=== PATIENT | female | born 1935 | race Caucasian/White ===

== ENCOUNTER 2023-07-03 12:45 | Emergency (ER) | payer MEDICARE, MEDICAID, SELFPAY ==
[2023-07-03] VITALS (7 sets, daily range): BP systolic 145–160; BP diastolic 53–69; PULSE 52–66; RESP 13–22; TEMP 36.5; O2SAT 96–98
--- NOTE | ~2023-07-03 | CT_ITS ---
EXAMINATION: CT brain wo con DATE: 07/03/2023 14:20 INDICATION: Fall with head injury TECHNIQUE: Computed tomography (CT) of the head was performed without intravenous contrast. Sagittal and coronal reconstructions were performed. The mA was adjusted according to patient size. Iterative reconstruction technique was employed. The dose-length product was 605.33 mGy-cm. COMPARISON: None FINDINGS: No fracture. No acute intracranial hemorrhage, acute infarction or abnormal extra axial fluid collect ion. There is extensive scattered white matter hypoattenuation consistent with chronic small vessel i schemic disease. Symmetric prominence of the sulci consistent with mild to moderate age-appropriate d iffuse cerebral volume loss. Ventricles are normal and symmetric. No mass/mass effect. There is muco lyubov thickening bilateral ethmoid and right maxillary sinuses with minimal amount of dependently layer ing fluid in the right maxillary sinus. Changes of bilateral intraocular lens replacement. Mastoid ai r cells and middle ear cavities are clear. Intracranial calcified cerebral atherosclerosis is noted. IMPRESSION: 1. No fracture or acute intracranial process. 2. Age-related changes including mild to moderate diffuse volume loss and extensive scattered white m atter hypoattenuation consistent with chronic small vessel ischemic disease. Reviewed, dictated and finalized at location A. CTOR OF GRADUATE ADMISSIONS IMPRESSION: 1. No fracture or acute intracranial process. 2. Age-related changes including mild to moderate diffuse volume loss and exten sive scattered white matter hypoattenuation consistent with chronic small vesse l ischemic disease.
--- NOTE | ~2023-07-03 | XR_ITS ---
EXAMINATION: XR forearm RT 2V, XR hand RT min 3V DATE: 07/03/2023 14:34 INDICATION: Laceration posterior to the right hand and bruising and swelling at the posterolateral as pect of the proximal right forearm. TECHNIQUE: 1. AP an lateral views of the right forearm were obtained. 2. Dorsal palmar, oblique and lateral views of the right hand were obtained. COMPARISON: none FINDINGS: Right forearm: There is prominent soft tissue swelling at the ulnar aspect of the proximal right forearm. Prominent diffuse osteopenia. Bone alignment is normal. No fracture. Mild polyarticular osteoarthritis at the r ight elbow and wrist. No evident elbow joint effusion. Normal variant supracondylar process along the anterior distal metadiaphyseal region of the right humerus. Right hand: Bone alignment is normal. No fracture. Moderate polyarticular osteoarthritis at the first carpometaca rpal and triscaphe, multiple metacarpophalangeal and interphalangeal joints. No radiopaque foreign cassia dies. IMPRESSION: 1. No acute osseous abnormality or radiopaque foreign bodies. 2. Polyarticular osteoarthritis, moderate severity throughout the right hand and mild at the right wr ist and elbow. 3. Prominent diffuse osteopenia. Reviewed, dictated and finalized at location A. HEMICAL LABORATORY TECHNICIAN IMPRESSION: 1. No acute osseous abnormality or radiopaque foreign bodies. 2. Polyarticular osteoarthritis, moderate severity throughout the right hand an d mild at the right wrist and elbow. 3. Prominent diffuse osteopenia.
--- NOTE | ~2023-07-03 | CT_ITS ---
EXAMINATION: CT cervical spine wo con DATE: 07/03/2023 14:20 INDICATION: Fall with head injury TECHNIQUE: Computed tomography (CT) of the cervical spine was performed without intravenous contrast. Automated exposure control and iterative reconstruction technique were employed. The dose-length pro duct was 348.31 mGy-cm. COMPARISON: None FINDINGS: Alignment is normal. Cervical vertebral body heights are normal. Chronic appearing mild anterior wedg ing at T2 and minimal at T1. No acute fracture. Moderate osteoarthritis at the atlantoaxial articulat ion with surrounding calcified pannus. Moderate disc height loss at C3-C4 and C5-C6. Mild disc height loss at C4-C5, C6-C7 through T2-T3. Prominent atherosclerotic calcification is at the bilateral garcia tid bulbs which may be hemodynamically significant. Cervical soft tissues are otherwise unremarkable. Mild biapical pleural-parenchymal scarring. The following disc levels are specifically discussed: C2-C3: Disc is bulging. There is mild left and moderate right uncovertebral joint osteoarthritis. The re is mild to moderate bilateral facet joint osteoarthritis. There is mild right neural foraminal kavita nosis. There is mild central canal stenosis. C3-C4: Disc is bulging. There is severe bilateral uncovertebral joint osteoarthritis. There is mild b ilateral facet joint osteoarthritis. There is moderate right and mild to moderate left neural foramin al stenosis. There is mild central canal stenosis. C4-C5: Disc is bulging. Ossification along the posterior longitudinal ligament as well as the ligamen jey flavum. There is moderate bilateral uncovertebral joint osteoarthritis. There is mild bilateral f acet joint osteoarthritis. There is mild bilateral neural foraminal stenosis. There is moderate centr al canal stenosis. C5-C6: Disc is bulging. Additional calcific location of the ligamentum flavum. There is moderate left and severe right uncovertebral joint osteoarthritis. There is mild bilateral facet joint osteoarthri tis. There is mild to moderate bilateral neural foraminal stenosis. There is mild central canal steno sis. C6-C7: Disc is bulging. There is calcification of the ligamentum flavum. There is moderate bilateral uncovertebral joint osteoarthritis. There is mild right and moderate left facet joint osteoarthritis. There is mild right and mild to moderate left neural foraminal stenosis. There is mild central canal stenosis. C7-T1: Disc is mildly bulging. There is minimal bilateral uncovertebral joint osteoarthritis. There i s moderate left and severe right facet joint osteoarthritis. There is minimal left neural foraminal s tenosis. There is no central canal stenosis. IMPRESSION: 1. Moderate cervical spondylosis. No acute osseous abnormality. 2. Atherosclerotic calcifications at the bilateral carotid bulbs which may be hemodynamically signifi cant. Reviewed, dictated and finalized at location A. ER SORTER MACHINE IMPRESSION: 1. Moderate cervical spondylosis. No acute osseous abnormality. 2. Atherosclerotic calcifications at the bilateral carotid bulbs which may be h emodynamically significant.
--- NOTE | ~2023-07-03 | CT_ITS ---
EXAMINATION: CT abdomen pelvis w con DATE: 07/03/2023 14:20 INDICATION: Abdomen firm to palpation TECHNIQUE: Computed tomography (CT) of the abdomen and pelvis was performed with 100 cc Omnipaque 350 intravenous contrast. The dose-length product was 1121.45 mGy-cm. Automated exposure control and ite rative reconstruction technique were employed. COMPARISON: None. FINDINGS: Patchy bibasilar airspace disease which may represent pneumonia and/or atelectasis. Cardiom egaly. No significant pleural or pericardial effusion. There are calcified granulomas of the spleen. Status post cholecystectomy. There is a large area of GI of graphic hypoperfusion of the right kidney , suspicious for renal infarction. There is a complex right renal mass measuring 2.4 cm, concerning f or renal cell carcinoma. There is a 4 mm nonobstructing left renal stone. The pancreas, adrenal gland s are unremarkable. Nonobstructive bowel gas pattern. Uterus is atrophic with coarse calcifications, likely related to fibroid changes. No free air or free fluid. No lymphadenopathy. Moderate diffuse at herosclerosis without aneurysm. Generalized demineralization of the bones. There is mixed lytic and s clerotic lesion of the right ilium, concerning for metastatic disease. There are scattered areas of s clerosis in the spine and sacrum, concerning for metastatic disease. Status post median sternotomy fo r CABG. There is nodular irregular soft tissue of the left breast. Cannot exclude breast mass. IMPRESSION: 1. Large geographic area of hypoperfusion right kidney, concerning for renal infarction. 2: Complex 2.4 cm right renal mass, suspicious for renal cell carcinoma. Possible osseous metastases to the spine and pelvis. 3: Patchy bibasilar airspace disease may represent pneumonia and/or atelectasis. 4: Nodular asymmetric soft tissue of the left breast, suspicious for underlying mass. Correlation wi th diagnostic bilateral mammogram and ultrasound recommended. Reviewed, dictated and finalized at location L. AULIC CONTROLS TECHNICIAN IMPRESSION: 1. Large geographic area of hypoperfusion right kidney, concerning for renal in farction. 2: Complex 2.4 cm right renal mass, suspicious for renal cell carcinoma. Possi ble osseous metastases to the spine and pelvis. 3: Patchy bibasilar airspace disease may represent pneumonia and/or atelectasis . 4: Nodular asymmetric soft tissue of the left breast, suspicious for underlyin g mass. Correlation with diagnostic bilateral mammogram and ultrasound recommen ded.
--- NOTE | 2023-07-03 13:03 | ED.FALL ---
HPI - Fall General Chief Complaint: Fall Stated Complaint: fall, head lac, R FA pain Source: patient Mode of arrival: EMS Limitations: dementia History of Present Illness HPI Narrative: [facility]ortedly [facility] at a [facility]. It was witnessed. Sustained head laceration and right forearm injury. She was intiially complainign of a headache. Sling applied by EMS. On Plavix and/or Elliquis. Alert and oriented to self which is reported to be her baseline. 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 When asked where she has pain, she states no where.' Related Data Allergies Allergy/AdvReac Type Severity Reaction Status Date / Time No Known Allergies Allergy Verified 07/03/23 13:44 PMFSH Past Medical History Medical History Anemia, unspecified Anxiety disorder, unspecified Atherosclerotic heart disease of [place] coronary artery without angina pectoris Bradycardia, unspecified Chronic atrial fibrillation, unspecified Dysphagia, oral phase Essential (primary) hypertension Hyperlipidemia, unspecified Low back pain, unspecified Lymphedema, not elsewhere classified Morbid (severe) obesity due to excess calories Type 2 diabetes mellitus without complications Social History Social History (Updated 07/03/23 @ 13:10 by Awilda Lentz MD) Social History: DNR per [facility] documentation. Undergoing [facility] Hospice services per [facility] care Exam Narrative: GENERAL: well-nourished, and in no acute distress. HEAD: 1.5 cm linear laceration mid forehead, bleeding contrtolled EYES: Non injected, non icteric ENT: Nares clear, no rhinorrhea or epistaxis. but some bruising to the bridge of her nose. NECK: Supple. CHEST: No respiratory distress. HEART: Regular rate and rhythm. .Palpalble 2+ radial pulse in RUE ABDOMEN: Soft but with an abdominal firmness; no rigidity or guarding. EXTREMITIES: Ecchymosis to right hand between thumb and 2nd digit. Ecchymosis and hemotoma at proximal right forearm but able to move extremity. Hips stable to compression. SKIN: Warm, dry, no rash. NEURO: Alert and oriented to self only. . PSYCH: Normal mood and affect. Course Vital Signs Vital signs: Vital Signs Temperature 97.7 F 07/03/23 12:47 Pulse Rate 52 L 07/03/23 12:47 Respiratory Rate 16 07/03/23 12:47 Blood Pressure 147/53 H 07/03/23 12:47 Pulse Oximetry 97 07/03/23 12:47 Oxygen Delivery Room Air 07/03/23 12:47 Temperature 97.7 F 07/03/23 12:47 Pulse Rate 66 07/03/23 16:19 Respiratory Rate 18 07/03/23 16:19 Blood Pressure 145/69 H 07/03/23 16:19 Pulse Oximetry 97 07/03/23 16:19 Oxygen Delivery Room Air 07/03/23 12:47 MDM - Fall MDM Narrative Medical decision making narrative: Patient presents as a reported witnessed fall [facility] at [facility]. Has a laceration to forehead and hematoma at proximal right forearm, sling applied by EMS. Neurovascularly intact. Imaging negative for intracranial hemorrhage, cervical spine fracture (collar removed) or extremity fracture/dislocation. Ice pack applied to forearm which has a sizeable hematoma. Cr elevated with unknown baseline, fluids ordered. Patient's son presents to bedside. I did discuss with him the findings on the CT scan concerning for possible renal malignancy. He is not aware of this although he states they were concerned that there was concern that patient had cancer, unclear what time. Through shared decision-making, we did discuss that as she is on hospice and goals of care have been for comfort measures, will not be pursuing further work up or intervention at this time. Medical student performed laceration repair using lidocaine locally and 3 simple interrupted chromic gut dissolvable/absorbable sutures. Tolerated procedure well and I did examine wound after which appears very well approximated. RN to apply non
[2023-07-03 13:36] LABS: Basophils Percent Auto 0.4 % (0.2-1.2); Eosinophils Absolute Auto 0.1 K/mm3 (0-0.3); Eosinophils Percent Auto 0.6 % (0-4.4); Hematocrit 39.2 % (37.0-47.0); Hemoglobin 12.7 g/dL (12.0-15.0); Immature Granulocyte Absolute 0.03 K/mm3 (0.00-0.031); Immature Granulocyte Percent A 0.4 % (0-0.5); Lymphocytes Absolute Auto 1.89 K/mm3 (0.9-3.2); Lymphocytes Percent Auto 24.2 % (18.3-44.2); Mean Corpuscular HGB Conc 32.4 g/dl (32-36); Mean Corpuscular Hemoglobin 30.2 pg (26-34); Mean Corpuscular Volume 93.1 fl (80-100); Mean Platelet Volume 11.1 fl (7.4-10.4); Monocytes Absolute Auto 0.7 K/mm3 (0.1-0.6); Monocytes Percent Auto 9.2 % (2.6-8.5); Neutrophils Absolute Auto 5.1 K/mm3 (1.3-6.7); Neutrophils Percent Auto 65.2 % (45.5-73.1); Platelet Count Result 191 k/mm3 (150-375); Red Blood Count 4.21 M/mm3 (4.2-5.4); Red Cell Distribution Width 13.2 % (11.5-14.5); White Blood Count 7.8 K/mm3 (4.5-10.0)
[2023-07-03] MEDS: ACETAMINOPHEN 500 MG TABLET 1000 MG PO (13:44)
[2023-07-03 13:48] LABS: Alanine Aminotransferase 15 U/L (6-35); Albumin Level 3.3 g/dL (3.5-5.1); Alkaline Phosphatase 112 U/L (38-126); Anion Gap 5 mmol/L (8-16); Aspartate Amino Transferase 24 U/L (14-36); Bilirubin,Total 1.5 mg/dL (0.2-1.3); Blood Urea Nitrogen 31 mg/dL (7-17); Calcium 9.1 mg/dL (8.4-10.2); Carbon Dioxide 29 mmol/L (22-30); Chloride 100 mmol/L (98-107); Estimated CRCL calculation 29 ml/min; Estimated Glomerular Filt Rate 39; Glucose 255 mg/dL (65-110); INR 1.2; Lipase 33 U/L (23-300); Partial Thromboplastin Time 50.7 SECONDS (22.3-36.8); Potassium 3.7 mmol/L (3.4-5.0); Prothrombin Time 15.4 Seconds (11.1-14.7); Sodium 134 mmol/L (137-145)
[2023-07-03] MEDS: SODIUM CHLORIDE 0.9% IV 1,000 ML 999 ML IV CONT (14:59)
[2023-07-03] MEDS: MORPHINE SULFATE (*CRX) 2 MG/ML INJ IV PUSH ×2 (15:33→16:16)
[2023-07-03] MEDS: DOXYCYCLINE HYCLATE 100 MG TABLET PO (15:33)
== END 2023-07-03 17:15 | disposition hospice, home (50) ==
PROVIDERS: Emergency Provider Student in an Organized Health Care Education/Training Program; PCP Hospitalist
DX: S01.81XA Laceration without foreign body of other part of head, initial encounter (principal); S50.11XA Contusion of right forearm, initial encounter; S60.221A Contusion of right hand, initial encounter; J18.9 Pneumonia, unspecified organism; N28.89 Other specified disorders of kidney and ureter; M85.831 Other specified disorders of bone density and structure, right forearm; M47.812 Spondylosis without myelopathy or radiculopathy, cervical region; M19.041 Primary osteoarthritis, right hand; M19.031 Primary osteoarthritis, right wrist; M19.021 Primary osteoarthritis, right elbow; R94.4 Abnormal results of kidney function studies; I25.10 Atherosclerotic heart disease of native coronary artery without angina pectoris; I48.20 Chronic atrial fibrillation, unspecified; I10 Essential (primary) hypertension; I89.0 Lymphedema, not elsewhere classified; E11.9 Type 2 diabetes mellitus without complications; E78.5 Hyperlipidemia, unspecified; E66.01 Morbid (severe) obesity due to excess calories; Z68.25 Body mass index [BMI] 25.0-25.9, adult; Z66 Do not resuscitate; Z86.2 Personal history of diseases of the blood and blood-forming organs and certain disorders involving the immune mechanism; Z79.01 Long term (current) use of anticoagulants; Z79.02 Long term (current) use of antithrombotics/antiplatelets; I65.23 Occlusion and stenosis of bilateral carotid arteries; W05.0XXA Fall from non-moving wheelchair, initial encounter
CPT/HCPCS: 36415; 70450; 72125; 73090; 73130; 74177; 80053; 83690; 85025; 85610; 85730; 96361; 96374; 96376; 99284; A9270; J2270; J7030; Q9967

== ENCOUNTER 2023-07-08 15:14 | Outpatient (NON) | payer OTHER, MEDICARE, MEDICAID, SELFPAY ==
[2023-07-08 15:53] LABS: Influenza A QL RT-PCR Negative (Negative); Influenza B QL RT-PCR Negative (Negative); RSV RNA, RT-PCR Negative (Negative); SARS-CoV-2 RNA PCR Positive (Negative)
== END 2023-07-08 15:15 | disposition home or self-care (01) ==
LOC: ANHLAB 15:21
PROVIDERS: PCP Hospitalist; Visit Provider Hospitalist
DX: Z20.822 Contact with and (suspected) exposure to COVID-19 (principal)
CPT/HCPCS: 87637

== ENCOUNTER 2023-08-19 14:41 | Emergency (ER) | payer MEDICARE, MEDICAID, SELFPAY ==
--- NOTE | ~2023-08-19 | CT_ITS ---
EXAMINATION: CT facial & cervical spine wo DATE: 08/19/2023 15:33 INDICATION: Head injury. TECHNIQUE: Computed tomography (CT) of the maxillofacial region and cervical spine was performed with out intravenous contrast. Automated exposure control and iterative reconstruction technique were empl oyed. The dose-length product was 346.74 mGy-cm. COMPARISON: CT cervical spine 07/03/2023, head CT 07/03/2023 FINDINGS: MAXILLOFACIAL CT: There is frontal scalp soft tissue swelling. There are likely changes of ocular lens replacement surg eries. There are fractures of the nasal bones and nasal process of maxilla, new from 07/03/2023. There is mild mucosal thickening in the paranasal sinuses. The mastoid air cells are normal. CERVICAL SPINE CT: There is 2 mm retrolisthesis of C3 on C4. There is mild chronic anterior wedging of T1 and T2 vertebr al bodies. There is severely decreased disc height at C3-C4, moderately decreased disc height at C5-C 6, and mildly decreased disc height at C6-C7. The following disc levels are specifically discussed: C2-C3: There is severe right and mild left uncovertebral joint osteoarthritis. There is severe bilate ral facet joint osteoarthritis. There is mild bilateral neural foraminal stenosis. There is mild cent ral canal stenosis. C3-C4: There is severe bilateral uncovertebral joint osteoarthritis. There is mild bilateral facet smitha int osteoarthritis. There is mild bilateral neural foraminal stenosis. There is mild central canal st enosis. C4-C5: There is severe right and moderate left uncovertebral joint osteoarthritis. There is mild bila teral facet joint osteoarthritis. There is mild bilateral neural foraminal stenosis. There is mild ce ntral canal stenosis. C5-C6: There is severe bilateral uncovertebral joint osteoarthritis. There is moderate bilateral face t joint osteoarthritis. There is mild bilateral neural foraminal stenosis. There is mild central brandt l stenosis. C6-C7: There is mild bilateral uncovertebral joint osteoarthritis. There is mild right and severe lef t facet joint osteoarthritis. There is mild left neural foraminal stenosis. There is mild central can al stenosis. C7-T1: There is no uncovertebral joint osteoarthritis. There is severe bilateral facet joint osteoart hritis. There is mild bilateral neural foraminal stenosis. There is no central canal stenosis. IMPRESSION: 1. Fractures of the nasal bones and nasal processes of maxilla. 2. Severe cervical spondylosis. Reviewed, dictated and finalized at location A.
--- NOTE | ~2023-08-19 | CT_ITS ---
EXAMINATION: CT brain wo con DATE: 08/19/2023 15:33 INDICATION: fall . TECHNIQUE: Computed tomography (CT) of the head was performed without intravenous contrast. The mA wa s adjusted according to patient size. Iterative reconstruction technique was employed. The dose-lengt h product was 681.00 mGy-cm. COMPARISON: 07/03/2023. FINDINGS: Exam limited by motion and nonstandard positioning. No acute intracranial hemorrhage or extra-axial fluid collection. No hydrocephalus, mass, or herniation. No acute ischemic infarct. Unremarkable dural venous sinus attenuation. No acute osseous abnormality. Right maxillary mucosal thickening, small right sphenoid retention cyst/polyp, the remaining aerated spaces are clear. Moderate atrophy and severe chronic white matter change. Atherosclerotic intracranial calcification. Bilateral lens replacements. IMPRESSION: No acute intracranial process. Reviewed, dictated and finalized at location K.
[2023-08-19 14:42] VITALS: BP 157/68; PULSE 56; RESP 11; TEMP 36.5; O2SAT 100
--- NOTE | 2023-08-19 14:56 | PC.NURSE ---
pt arrived to ED with depends full with urine and stool. pt was cleaned up and new depends applied upon arrival. no bruising or deformity noted while doing this
--- NOTE | 2023-08-19 16:13 | ED.FALL ---
HPI - Fall General Chief Complaint: Fall Stated Complaint: fall Time Seen by Provider: 08/19/23 15:03 History of Present Illness HPI Narrative: 88F presents after hitting her head on table at [place]. Denies any pain except to her face. Related Data Allergies Allergy/AdvReac Type Severity Reaction Status Date / Time No Known Allergies Allergy Verified 07/03/23 13:44 Review of Systems Review of Systems: ROS unobtainable: Yes unobtainable due to mental status PMFSH Past Medical History Medical History Anemia, unspecified Anxiety disorder, unspecified Atherosclerotic heart disease of [place] coronary artery without angina pectoris Bradycardia, unspecified Chronic atrial fibrillation, unspecified Dysphagia, oral phase Essential (primary) hypertension Hyperlipidemia, unspecified Low back pain, unspecified Lymphedema, not elsewhere classified Morbid (severe) obesity due to excess calories Type 2 diabetes mellitus without complications Social History Social History (Updated 07/03/23 @ 13:10 by Awilda Lentz MD) Social History: DNR per [facility] documentation. Undergoing [facility] Hospice services per [facility] care Exam Narrative: EXAMINATION OF ORGAN SYSTEMS/BODY AREAS: Constitutional: Vital signs per nursing GENERAL:[No acute distress, non-toxic appearing.] HEAD: Large contusion to forehead EYES: EOMI, conjunctiva normal ENT: Nasal bridge swelling/bruising LUNGS: Nonlabored breathing. HEART: [Regular rate and rhythm] ABD: [Soft], [nontender to palpation] EXT: Normal range of motion; no tenderness to palpation of any extremity, chest or pelvis or neck or back SKIN: Lacs and bruising to face (forehead and bridge of nose) NEURO: [Alert. No gross focal sensory or strength deficits.] PSYCH: Normal affect Course Vital Signs Vital signs: Vital Signs Temperature 97.7 F 08/19/23 14:42 Pulse Rate 56 L 08/19/23 14:42 Respiratory Rate 11 L 08/19/23 14:42 Blood Pressure 157/68 H 08/19/23 14:42 Pulse Oximetry 100 08/19/23 14:42 Oxygen Delivery Autopap 08/19/23 14:42 Temperature 97.7 F 08/19/23 14:42 Pulse Rate 50 L 08/19/23 16:53 Respiratory Rate 20 08/19/23 17:01 Blood Pressure 159/46 H 08/19/23 17:01 Pulse Oximetry 100 08/19/23 17:01 Oxygen Delivery Autopap 08/19/23 14:42 Procedures Laceration Laceration 1: Date: 08/19/23 Time: 16:27 Site: face Size (cm): 2.5 Description: linear Depth: simple, single layer Local Anesthetic: lidocaine 1% Amount of anesthesia used (mL): 2.5 Pre-repair: wound explored, irrigated and wound margins revised ====== Skin Level ====== Skin layer closed with: vicryl Size (cm): 5-0 Number of sutures: 3 Technique: simple, interrupted ====== Subcutaneous Layer ====== ====== Muscle Layer ====== ====== Tendon Layer ====== Laceration 2: Date: 08/19/23 Time: 16:29 Site: face Size (cm): 0.5 Description: linear Depth: simple, single layer Local Anesthetic: none Pre-repair: irrigated ====== Skin Level ====== Skin layer closed with: dermabond ====== Subcutaneous Layer ====== ====== Muscle Layer ====== ====== Tendon Layer ====== MDM - Fall MDM Narrative Medical decision making narrative: 1) Differential diagnosis: Fracture, intracranial bleed, lacerations 2) Comorbidities: Dementia, on blood thinners 3) External notes reviewed: n/a 4) History sources independently obtained from: EMS/[facility], patient's son at bedside who states patient is at mental baseline right now. 5) Discussion of management with: ENT 6) Independent interpretation of: CT head -- limited by motion artifact; no obvious intracranial hemorrhage, there are some calcifications 7) Diagnostic tests or therapies considered
[2023-08-19] MEDS: TETANUS,DIPHTHERIA,AC PERTUSSIS ADULT (0.5 ML) BOOSTRIX IM (16:21)
[2023-08-19 16:41] VITALS: PULSE 49; RESP 15; O2SAT 100
[2023-08-19 16:46] VITALS: BP 137/116; PULSE 56; RESP 15; O2SAT 99
[2023-08-19 16:53] VITALS: BP 146/55; PULSE 50; RESP 19; O2SAT 100
[2023-08-19 16:55] VITALS: BP 146/55; RESP 18; O2SAT 99
[2023-08-19 17:01] VITALS: BP 159/46; RESP 20; O2SAT 100
== END 2023-08-19 17:52 | disposition hospice, home (50) ==
PROVIDERS: Emergency Provider Emergency Medicine; Referring Provider Emergency Medicine
DX: S02.2XXA Fracture of nasal bones, initial encounter for closed fracture (principal); S01.21XA Laceration without foreign body of nose, initial encounter; S01.81XA Laceration without foreign body of other part of head, initial encounter; Z23 Encounter for immunization; F03.90 Unspecified dementia, unspecified severity, without behavioral disturbance, psychotic disturbance, mood disturbance, and anxiety; I25.10 Atherosclerotic heart disease of native coronary artery without angina pectoris; I48.20 Chronic atrial fibrillation, unspecified; I10 Essential (primary) hypertension; E11.9 Type 2 diabetes mellitus without complications; E78.5 Hyperlipidemia, unspecified; E66.01 Morbid (severe) obesity due to excess calories; Z68.34 Body mass index [BMI] 34.0-34.9, adult; Z66 Do not resuscitate; Z86.2 Personal history of diseases of the blood and blood-forming organs and certain disorders involving the immune mechanism; Z79.01 Long term (current) use of anticoagulants; W22.03XA Walked into furniture, initial encounter
CPT/HCPCS: 12013; 70450; 70486; 72125; 90471; 90715; 99284